=== PATIENT | male | born 1960 ===

== ENCOUNTER 2022-04-17 19:03 | Emergency (ER) | payer MEDICAID ==
[~2022-04-17] VITALS: Ht 175.3 cm; Wt 90.3 kg
[2022-04-17 21:00] VITALS: BP 135/74
== END 2022-04-17 21:02 | disposition home or self-care (01) ==
LOC: ER 19:03
DX: S06.0X9A Concussion with loss of consciousness of unspecified duration, initial encounter (principal); S00.11XA Contusion of right eyelid and periocular area, initial encounter; W18.39XA Other fall on same level, initial encounter; Y93.89 Activity, other specified; Y92.89 Other specified places as the place of occurrence of the external cause; Y99.8 Other external cause status
CPT/HCPCS: 70450; 99284